=== PATIENT | female | born 1975 | race Caucasian/White ===

== ENCOUNTER 2016-04-29 18:05 | Emergency (ER) | payer SELFPAY ==
[2016-04-29] MEDS ORDERED: LIDOCAINE 2% VISC 15 ML UDC ONE (19:19)
== END 2016-04-29 19:37 | disposition home or self-care (01) ==
LOC: ER 18:05

== ENCOUNTER 2016-04-30 04:11 | Emergency (ER) | payer SELFPAY | END 2016-04-30 06:22 | disposition home or self-care (01) | LOC: ER 04:11 ==